=== PATIENT | female | born 1955 | race Caucasian/White ===

== ENCOUNTER 2022-01-30 16:38 | Inpatient (IN) | payer MEDICARE, OTHER ==
[~2022-01-30] VITALS: Ht 154.9 cm; Wt 90.7 kg
[2022-01-30 17:04] LABS: HEMATOCRIT 39.5 % (31.2-41.9); MEAN CORPUSCULAR HEMOGLOBIN 30.1 uug (24.7-32.8); MEAN CORPUSCULAR VOLUME 88.5 fL (75.5-95.3); PLATELET COUNT (AUTO) 290 K/uL (179-408)
--- NOTE | 2022-01-30 17:04 | NUR ---
Dr Palacios spoke to Nicole TIRE MECHANIC nurse receptionist for [facility] who accept patient.
[2022-01-30] MEDS ORDERED: AMLO-212 PO (17:06)
[2022-01-30] MEDS ORDERED: METO25TA6 PO (17:06)
[2022-01-30] MEDS ORDERED: APIX2.5T PO (17:06)
[2022-01-30] MEDS ORDERED: ATOR20TA PO (17:06)
[2022-01-30 17:09] LABS: CARBON DIOXIDE 30 mmol/L (21-32); CHLORIDE 104 mmol/L (98-107); CREATININE 0.9 mg/dL (0.6-1.3); GLUCOSE 109 mg/dL (74-106); POTASSIUM 3.7 mmol/L (3.5-5.1); UREA NITROGEN, BLOOD 15 mg/dL (7-18)
[2022-01-30 17:21] LABS: ALANINE AMINOTRANSFERASE 28 U/L (14-59); ALKALINE PHOSPHATASE 106 U/L (50-136); ASPARTATE AMINOTRANSFERASE 21 U/L (15-37); BILIRUBIN,DIRECT 0.1 mg/dL (0.0-0.2); BILIRUBIN,TOTAL 0.5 mg/dL (0.2-1.0); TOTAL PROTEIN, SERUM 8.4 g/dL (6.4-8.2)
--- NOTE | 2022-01-30 19:10 | NUR ---
change of shift report from Jada ZEPEDA
--- NOTE | 2022-01-30 19:37 | NUR ---
Patient will be transfered to TELE room 318 under Mary Rivera NP
[2022-01-30] MEDS ORDERED: ACETAMINOPHEN ES 500 MG TABLET ONE (20:29)
[2022-01-30] MEDS ORDERED: ASPIRIN 81 MG TAB.CHEW PO ONE (20:30)
[2022-01-30] MEDS ORDERED: ACETAMINOPHEN ES 500 MG TABLET PO ONE (20:30)
[2022-01-30] MEDS ORDERED: NITROGLYCERIN OINT 1 GM PACKET TP ONE ×2 (20:30)
[2022-01-30] MEDS ORDERED: NITROGLYCERIN 0.4 MG/TAB BOTTLE SL ONE ×2 (20:30)
--- NOTE | 2022-01-30 21:00 | NUR ---
report given to Chapo ZEPEDA
[2022-01-30 21:30] VITALS: BP 122/92
--- NOTE | 2022-01-30 21:40 | NUR ---
Pt. admitted to TELE room 318 , under care of Mary Rivera NP [employer]ongs [facility] completed
--- NOTE | 2022-01-30 21:40 | NUR ---
Admitted patient on Tele floor under the care of Dr De La Paz, alert oriented, speak [place] but understand [place], no sob no chest pain, sinus rhythm with PVC on tele monitor, no complain of pain, call light within reach. cont to monitor.
[2022-01-30] MEDS: METOPROLOL TARTRATE 25 MG TABLET PO SCH (22:27)
[2022-01-30] MEDS: APIXABAN 2.5 MG TABLET PO SCH (22:29)
[2022-01-30] MEDS: ASPIRIN 81 MG TAB.CHEW PO SCH (22:30)
[2022-01-31] VITALS: BP 100/45
[2022-01-31 04:00] VITALS: BP 99/46
[2022-01-31] MEDS: ASPIRIN 81 MG TAB.CHEW PO SCH (08:16)
[2022-01-31] MEDS: ATORVASTATIN 20 MG TABLET PO SCH (08:16)
[2022-01-31] MEDS: METOPROLOL TARTRATE 25 MG TABLET PO SCH ×2 (08:28→16:59)
[2022-01-31] MEDS: APIXABAN 2.5 MG TABLET PO SCH (08:28)
[2022-01-31] MEDS: AMLODIPINE 5 MG TABLET PO SCH (08:29)
[2022-01-31] MEDS ORDERED: FAMO40TA7 PO (11:26)
[2022-01-31] MEDS ORDERED: OMEP40CA21 PO (11:26)
[2022-01-31] MEDS: MORPHINE SULFATE 2 MG/1 ML DISP.SYRIN IV PRN (12:15)
[2022-01-31 12:40] VITALS: BP 124/55
[2022-01-31 16:35] VITALS: BP 117/48
[2022-01-31] MEDS: APIXABAN 5 MG TABLET PO SCH (17:02)
[2022-01-31 20:27] VITALS: BP 100/45
[2022-02-01] VITALS: BP 104/58
[2022-02-01 04:00] VITALS: BP 114/46
--- NOTE | 2022-02-01 05:40 | NUR ---
Slept throughout the night. No distress noted. Denies SOB or chest pain. IV site intact. Able to ambulate without assistance. Safety maintained throughout the night. Will endorse to day shift.
[2022-02-01 07:12] LABS: HEMATOCRIT 38.1 % (31.2-41.9); MEAN CORPUSCULAR HEMOGLOBIN 30.2 uug (24.7-32.8); MEAN CORPUSCULAR VOLUME 88.2 fL (75.5-95.3); PLATELET COUNT (AUTO) 271 K/uL (179-408)
[2022-02-01 07:13] LABS: CREATININE 0.8 mg/dL (0.6-1.3); PHOSPHOROUS 4.5 mg/dL (2.5-4.9); POTASSIUM 3.9 mmol/L (3.5-5.1)
[2022-02-01] MEDS: APIXABAN 5 MG TABLET PO SCH ×2 (08:56→16:44)
[2022-02-01] MEDS: ATORVASTATIN 20 MG TABLET PO SCH (08:57)
[2022-02-01] MEDS: METOPROLOL TARTRATE 25 MG TABLET PO SCH ×2 (09:00→16:43)
[2022-02-01] MEDS: AMLODIPINE 5 MG TABLET PO SCH (09:00)
--- NOTE | 2022-02-01 10:00 | NUR ---
FU with jessica re: CT CTA test for pt tomorrow at wednesday. Will need to be follow up tomorrow with Chay Silva
[2022-02-01 12:09] VITALS: BP 133/65
[2022-02-01 16:48] VITALS: BP 116/37
--- NOTE | 2022-02-01 18:00 | NUR ---
No episode of any c/o chest pain. Pt did c/o discomfort on CW (muscle ache) put ice on cw and pt stated that it was effected "ICE helped a little bit with the discomfort." Pt is in no acute distress.
[2022-02-01 20:00] VITALS: BP 119/44
[2022-02-01] MEDS: MORPHINE SULFATE 2 MG/1 ML DISP.SYRIN IV PRN (21:11)
[2022-02-02] VITALS: BP 120/46
[2022-02-02 04:00] VITALS: BP 120/63
--- NOTE | 2022-02-02 05:52 | NUR ---
Slept throughout the night. No distress noted. Denies chest pain or SOB at this time. Consent for CTA heart signed. IV site intact. Will endorse to day shift.
[2022-02-02] MEDS: METOPROLOL TARTRATE 25 MG TABLET PO SCH ×2 (09:00→16:52)
[2022-02-02] MEDS: ATORVASTATIN 20 MG TABLET PO SCH (09:14)
[2022-02-02] MEDS: APIXABAN 5 MG TABLET PO SCH ×2 (09:18→16:52)
[2022-02-02 15:47] VITALS: BP 113/68
[2022-02-02 16:52] VITALS: BP 113/68
--- NOTE | 2022-02-02 18:45 | NUR ---
Pt is in no acute distress. Discharge instructions given to son and patient verbalize understanding. IV dc.
== END 2022-02-02 18:45 | disposition home or self-care (01) | DRG 303 ==
LOC: ER 16:38 → TELE3 17:00
PROVIDERS: ADMIT Nurse Practitioner Acute Care; ATTEND Registered Nurse
DX: I25.10 Atherosclerotic heart disease of native coronary artery without angina pectoris (principal); D68.69 Other thrombophilia; I48.20 Chronic atrial fibrillation, unspecified; I50.32 Chronic diastolic (congestive) heart failure; E66.01 Morbid (severe) obesity due to excess calories; Z68.37 Body mass index [BMI] 37.0-37.9, adult; F41.9 Anxiety disorder, unspecified; E78.00 Pure hypercholesterolemia, unspecified; I49.3 Ventricular premature depolarization; Z20.822 Contact with and (suspected) exposure to COVID-19; I48.0 Paroxysmal atrial fibrillation; Z79.01 Long term (current) use of anticoagulants; I11.0 Hypertensive heart disease with heart failure; K21.9 Gastro-esophageal reflux disease without esophagitis
CPT/HCPCS: 36415; 71045; 83735; 84100; 84484; 85025; 93005; 93307; A4663; A9150; G0378; J2270